=== PATIENT | male | born 2000 | race Caucasian/White ===

== ENCOUNTER → 2021-06-04 10:33 | Outpatient (CLI) | payer OTHER, SELFPAY ==
--- NOTE | ~2021-06-04 | US_ITS ---
EXAMINATION: US soft tissue head and neck DATE: 06/04/2021 10:57 INDICATION: Localized swelling, mass, and lump, neck. TECHNIQUE: Multiple grayscale and Doppler ultrasound images of the neck were obtained. COMPARISON: None FINDINGS: There are enlarged left supraclavicular lymph nodes. The largest measures 2.2 x 2.0 x 1.8 c m. IMPRESSION: 1. Left supraclavicular lymphadenopathy, which may be reactive or metastatic disease. Ultrasound-guid ed core needle biopsy is recommended if the lymphadenopathy does not resolve. Reviewed, dictated and finalized at location A. IMPRESSION: 1. Left supraclavicular lymphadenopathy, which may be reactive or metastatic sherrill mckeon. Ultrasound-guided core needle biopsy is recommended if the lymphadenopat hy does not resolve.
== END ==
PROVIDERS: PCP Internal Medicine; Visit Provider Physician Assistant Medical
DX: R22.1 Localized swelling, mass and lump, neck (principal)
CPT/HCPCS: 76536